=== PATIENT | female | born 1980 | race Hispanic/Latino ===

== ENCOUNTER 2024-09-26 21:39 | Emergency (ER) | payer BC, MEDICAID, OTHER ==
[~2024-09-26] VITALS: Ht 167.6 cm; Wt 95.3 kg
--- NOTE | 2024-09-26 21:53 | ERN ---
General Chief Complaint: Syncope Stated Complaint: SYNCOPE AFTER DONATING PLASMA Time Seen by MD: 21:48 Source: patient History of Present Illness Initial Comments Patient is a 43-year-old female who donated plasma today and then afterwards felt lightheaded and nauseated. When she got home she had a syncopal episode. EMS brought her to the emergency room. Timing/Duration: 1 hour Allergies: Coded Allergies: No Known Drug Allergies (Unverified Allergy, Unknown, 09/26/24) Past Medical History Past Medical History: Anxiety Past Surgical History: None Constitutional: (-) chills, (-) diaphoresis, (-) fever, (-) malaise, (-) weakne ss, (-) other documentation EENTM: (-) eye pain, (-) blurred vision, (-) tearing, (-) double vision, (-) e ar pain, (-) ear discharge, (-) nose pain, (-) nose congestion, (-) throat pain, (-) Throat swelling, (-) mouth pain, (-) tooth pain, (-) mouth swelling, (-) other documentation Respiratory: (-) cough, (-) orthopnea, (-) short of breath, (-) stridor, (-) wheezing, (-) other documentation Cardiovascular: (-) chest pain, (-) edema, (-) palpitations, (-) syncope, (-) dyspnea on exertion, (-) other documentation Gastrointestinal/Abdominal: (-) nausea, (-) vomiting, (-) diarrhea, (-) abdominal pain, (-) abdominal distention, (-) constipation, (-) rectal bleeding, (-) dark stool/melena, (-) other documentation Genitourinary: (-) vaginal discharge, (-) vaginal bleeding, (-) dysuria, (-) frequency, (-) hematuria, (-) pain, (-) other documentation Musculoskeletal: (-) Neck pain, (-) back pain, (-) Flank Pain, (-) joint pain, (-) joint swelling, (-) muscle pain, (-) muscle stiffness, (-) gout, (-) other documentation Skin: (-) laceration, (-) contusion, (-) abrasion, (-) abscess, (-) rash, (-) change in color, (-) change in hair, (-) change in nails, (-) diaphoresis, (-) dryness, (-) other documentation Neuro: (-) altered mental status, (-) headache, (-) syncope, (-) paralysis, (-) numbness, (-) seizure, (-) pre-existing deficit, (-) tremors, (-) weakness, (-) dizziness, (-) slurred speech, (-) vertigo, (-) other documentation Physical Exam General Appearance: (+) no apparent distress Orientation: (+) alert, (+) oriented x 3 Head/Face Trauma: No Eye: bilateral eye normal inspection, bilateral eye PERRL, bilateral eye EOMI Ear, Nose, Throat: (+) hearing grossly normal, (+) normal ENT inspection, (+) moist mucous membraine Neck: (+) normal inspection, (+) supple Respiratory: (+) chest non-tender, (+) lungs clear Heart: (+) regular, (+) no gallop Vascular: (+) no edema, (+) normal peripheral pulse Gastrointestinal: (+) soft, (+) non-tender, (+) bowel sound present Results Laboratory and Microbiology Lab and Micro Result Laboratory Tests Test 09/26/24 21:58 09/26/24 23:57 White Blood Count 20.0 K/uL (4.8-10.8) H Red Blood Count 4.89 MIL/uL (4.00-5.50) Hemoglobin 13.2 g/dL (12.0-16.0) Hematocrit 42.5 % (36-48) Mean Corpuscular Volume 86.9 fL (79-99) Mean Corpuscular Hemoglobin 27.0 pg (27.0-33.0) Mean Corpuscular Hemoglobin Concent 31.1 g/dL (32.0-36.0) L Red Cell Distribution Width 13.8 % (11.0-15.5) Platelet Count 365 K/uL (130-400) Mean Platelet Volume 9.4 fL (7.5-10.5) Immature Granulocyte % (Auto) 0.6 % (0-1) Neutrophils (%) (Auto) 80.6 % (40.0-77.0) H Lymphocytes (%) (Auto) 10.3 % (21.0-51.0) L Monocytes (%) (Auto) 5.8 % (3.0-13.0) Eosinophils (%) (Auto) 2.1 % (0.0-8.0) Basophils (%) (Auto) 0.6 % (0.0-5.0) Neutrophils # (Auto) 16.1 K/uL (1.8-7.7) H Lymphocytes # (Auto) 2.1 K/uL (1.0-4.8) Monocytes # (Auto) 1.2 K/uL (0.1-1.0) H Eosinophils # (Auto) 0.42 K/uL (0.00-0.70) Basophils # (Auto) 0.12 K/uL (0.00-0.20) Absolute Immature Granulocyte (auto 0.13 K/uL (0-1) Nucleated Red Blood Cells 0.0 % (0.0-0.19) Sodium Level 137 mmol/L (136-145) Potassium Level 3.8 mmol/L (3.5-5.1) Chloride Level 105 mmol/L (101-111) Carbon Dioxide Level 24 mmol/L (21-32) Blood Urea Nitrogen 12 mg/dL (7-18) Creatinine 0.9 mg/dL (0.5-1.0) Glomerular Filtration Rate Calc 81 mL/min (>90) Random Glucose 162 mg/dL (70-105) H Total Calcium 8.1 mg/dL (8.5-10.1) L Troponin I High Sensitivity < 4 ng/L (4-50) L Urine Color LIGHT-YELLOW (YELLOW) Urine Appearance CLOUDY (CLEAR) H Urine pH 6.0 (5.0-8.0) Urine Specific Leslie 1.008 (1.001-1.031) Urine Protein NEGATIVE mg/dL (NEGATIVE) Urine Glucose (UA) NEGATIVE mg/dL (NEGATIVE) Urine Ketones NEGATIVE mg/dL (NEGATIVE) Urine Occult Blood NEGATIVE (NEGATIVE) Urine Nitrate NEGATIVE (NEGATIVE) Urine Bilirubin NEGATIVE mg/dL (NEGATIVE) Urine Urobilinogen 0.2 mg/dL (0.2-1.0) Urine Leukocyte Esterase 250 Raina/uL (NEGATIVE) H Urine RBC 2-5 /HPF (0-1) H Urine WBC 11-25 /HPF (0-1) H Urine Squamous Epithelial Cells FEW /HPF (0-2) Urine Bacteria FEW /HPF (None Seen) Urine Hyaline Casts 2-5 /LPF (0-1 /LPF) H MDM Given patient's symptoms one would assume hypotension as the cause. I will give her a L of fluid I will check her electrolytes and cardiac enzymes and get an EKG. In addition I will do orthostatic vital signs. Orthostatic vital signs were normal. CBC showed a white blood cell count of 20. Chemistry panel was normal. UA showed large number of white blood cells. I think the high white blood cell count is due to the plasmapheresis. Patient does not have pyelonephritis based on a physical exam she has no back pain at the costovertebral angle. She has no fevers. I will discharge the patient with a prescription for Keflex. I will also give her a bolus of Ancef before discharge. I recommend follow-up with her primary care physician to be sure the white blood cell count is normalizing. ED Course Orders Procedure Category Date Status Time Lactated Ringers PHA 09/26/24 Complete 1000ml (Lactated 21:48 Ondansetron 4mg PHA 09/26/24 Complete Tablet (Zofran 4mg 22:00 Basic Metabolic Panel LAB 09/26/24 Complete 21:48 Cbc With Differential LAB 09/26/24 Complete 21:48 Urinalysis Profile LAB 09/26/24 Complete 21:48 12 Lead Ekg Tracing- EKG 09/26/24 Logged Technical 21:48 Troponin I High LAB 09/26/24 Complete Sensitivity 21:48 Orthostatic Vital CPOE 09/26/24 Transmitted Signs 21:53 Ondansetron 4mg Inj PHA 09/26/24 Complete (Zofran 4mg Inj) 21:56 Culture Urine RAY 09/27/24 In Process 00:30 Current Medications Medications (Trade) Dose Ordered Sig/Bernard Route PRN Reason Start Time Stop Time Status Last Admin Dose Admin Lactated Ringer's (Lactated Ringers 1000ml) 1,000 ml BOLUS STAT IV 09/26/24 21:48 09/26/24 22:03 DC 09/26/24 22:29 Ondansetron HCl (zoFRAN 4MG TABLET) 4 mg ONCE ONCE PO 09/26/24 22:00 09/26/24 22:03 DC 09/26/24 22:29 Ondansetron HCl (zoFRAN 4MG INJ) 4 mg STK-MED ONCE .ROUTE 09/26/24 21:56 09/26/24 22:00 DC Vital Signs Date Time Temp Pulse Resp B/P (MAP) Pulse Ox O2 Delivery O2 Flow Rate FiO2 09/26/24 22:53 98.8 78 18 103/62 98 Room Air* 0 21 09/26/24 21:40 98.1 86 18 100/71 98 Room Air 0 DX & DISP Disposition: Discharge Departure Impression: Primary Impression: UTI (urinary tract infection) Additional Impressions: Leukocytosis, unspecified, Syncope Condition: Stable Scripts Cephalexin Monohydrate (Keflex) 500 Mg Cap 500 MG PO QID for 7 Days, #28 CAP Prov: AELXANDRO BUCKNER MD 09/27/24 Additional Instructions: Are laboratory analysis shows that you have a urinary tract infection I have sent a prescription to your pharmacy. Your white blood cell count is extremely high; however, I think this is due to your plasmapheresis session as plasmapheresis is known to cause marked leukocytosis. In the absence of fever and back pain I do not think you have infected kidneys. If in the next day or two you do not to start to feel better or if you start to feel more lightheaded febrile and more weak nauseous then please return to the hospital to rule out an infection that has spread out beyond her bladder. Referrals: NONE (PCP) ALEXANDRO BUCKNER MD Sep 26, 2024 21:53
[2024-09-26 22:10] LABS: BASOPHILS # (AUTO) 0.12 K/uL (0.00-0.20); BASOPHILS % (AUTO) 0.6 % (0.0-5.0); EOSINOPHILS # (AUTO) 0.42 K/uL (0.00-0.70); EOSINOPHILS % (AUTO) 2.1 % (0.0-8.0); HEMATOCRIT 42.5 % (36-48); IMMATURE GRANULOCYTE ABSOLUTE 0.13 K/uL (0-1); LYMPHOCYTES # (AUTO) 2.1 K/uL (1.0-4.8); LYMPHOCYTES % (AUTO) 10.3 % (21.0-51.0); MEAN CORPUSCULAR HGB CONC 31.1 g/dL (32.0-36.0); MEAN CORPUSCULAR VOLUME 86.9 fL (79-99); MONOCYTES # (AUTO) 1.2 K/uL (0.1-1.0); MONOCYTES % (AUTO) 5.8 % (3.0-13.0); NEUTROPHILS # (AUTO) 16.1 K/uL (1.8-7.7); NEUTROPHILS % (AUTO) 80.6 % (40.0-77.0); PLATELET COUNT (AUTO) 365 K/uL (130-400); RED BLOOD CELL COUNT(AUTO) 4.89 MIL/uL (4.00-5.50); RED CELL DISTRIBUTION WIDTH 13.8 % (11.0-15.5)
[2024-09-26 22:18] LABS: CREATININE 0.9 mg/dL (0.5-1.0); POTASSIUM 3.8 mmol/L (3.5-5.1)
[2024-09-26] MEDS: ondanSETRON 4MG INJ ONE (22:29)
[2024-09-26] MEDS: ondanSETRON 4MG TABLET PO ONE (22:29)
[2024-09-26] MEDS: LACTATED RINGERS 1000ML IV STA (22:29)
--- NOTE | 2024-09-26 22:59 | NUR ---
ORTHO VS DONE- DR PIERSON AWARE LYING 103/62 SITTING 112/65 STANDING 125/63
[2024-09-27 00:30] LABS: ADD UA MICROSCOPIC YES; APPEARANCE,URINE CLOUDY (CLEAR); BILIRUBIN,URINE NEGATIVE (NEGATIVE); COLOR,URINE LIGHT-YELLOW (YELLOW); GLUCOSE, URINE (UA) NEGATIVE (NEGATIVE); KETONES,URINE NEGATIVE (NEGATIVE); LEUKOCYTE ESTERASE ,URINE 250 Leu/uL (NEGATIVE); NITRATE,URINE NEGATIVE (NEGATIVE); OCCULT BLOOD,URINE NEGATIVE (NEGATIVE); PROTEIN,URINE NEGATIVE (NEGATIVE); UROBILINOGEN,URINE 0.2 mg/dL (0.2-1.0)
[2024-09-27 00:33] LABS: BACTERIA,URINE FEW /HPF (None Seen); MUCUS,URINE RARE LPF (None Seen); SQUAMOUS EPITHELIAL CELL,UR FEW /HPF (0-2)
[2024-09-27] MEDS ORDERED: CEPH500B PO (01:04)
[2024-09-27] MEDS: ceFAZolin SODIUM 1 GM VIAL IVP STA (01:13)
[2024-09-27 01:21] VITALS: BP 115/63; PULSE 72; RESP 18; TEMP 98.5; O2SAT 98
--- NOTE | 2024-09-27 06:38 | EKG ---
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
== END 2024-09-27 01:22 | disposition home or self-care (01) ==
LOC: EDH 21:39
DX: N39.0 Urinary tract infection, site not specified (principal); D72.829 Elevated white blood cell count, unspecified; R55 Syncope and collapse; F41.9 Anxiety disorder, unspecified
CPT/HCPCS: 99284; 96374; 84484; 80048; 85025; 87086; 81001; 36415; 93005; J2405; J0690